=== PATIENT | female | born 1965 | race Caucasian/White ===

== ENCOUNTER → 2021-02-15 17:14 | Outpatient (CLI) | payer BC, SELFPAY ==
--- NOTE | ~2021-02-15 | US_ITS ---
US soft tissue head and neck 02/15/2021 17:29 Indication: Left neck swelling Procedure: High-resolution Limited ultrasound of the left neck Comparison: No prior studies for comparison. Findings: In the area of palpable concern there is a normal-appearing 1 cm lymph node. No other discr ete mass or fluid collection identified. Impression: 1: Normal 1 cm lymph node of the left neck in the area of palpable concern. Reviewed, dictated and finalized at [facility] Impression: 1: Normal 1 cm lymph node of the left neck in the area of palpable concern.
== END ==
PROVIDERS: PCP Physician Assistant Medical; Visit Provider Physician Assistant Medical
DX: R22.1 Localized swelling, mass and lump, neck (principal)
CPT/HCPCS: 76536